=== PATIENT | female | born 1975 | race Caucasian/White ===

== ENCOUNTER 2016-12-27 15:19 | Emergency (ER) | payer OTHER ==
[~2016-12-27] VITALS: Ht 172.7 cm; Wt 93.8 kg
[~2016-12-27 15:19] MED LIST: IBUP-1050 PO
[2016-12-27 15:27] VITALS: TEMP 36.8; Ht 172.7 cm; Wt 93.8 kg
[2016-12-27] MEDS ORDERED: SODIUM CHLORIDE 0.9% 1000ML 1,000 ML IV STA (15:50)
[2016-12-27] MEDS ORDERED: KETOROLAC TROMETHAMINE 30 MG/ML VIAL IV STA (15:50)
[2016-12-27] MEDS ORDERED: ONDANSETRON INJ 2 MG/ML 2 ML VIAL IV STA (15:50)
--- NOTE | 2016-12-27 15:57 | EMERGENCY ROOM VISIT NOTE ---
History Report prepared by Jak: Lori Timmons Under the Supervision of: Dr. Edgard Choi D.O. First contact with patient: 15:44 Chief Complaint: FLANK PAIN Stated Complaint: LEFT SIDE & LEFT FLANK PAIN History of Present Illness The patient is a 41 year old female who presents to the Emergency Room with complaints of worsening left sided flank pain since 1100 this morning. The pain started in her groin and has radiated to her left flank. She rates her discomfort as a 5/10. She tried drinking a lot of water, but states it provided no relief. She has a history of kidney stones and reports the last time she experienced a stone was in April 2016. She has undergone a stent before, but states it was approximately 17 years ago. She admits to nausea but has not vomited. She has undergone both an appendectomy and cholecystectomy. She denies any fevers, gross hematuria, dysuria or abnormal vaginal bleeding or discharge. Her LMP was 3 weeks ago and normal. She denies any pain or swelling in her legs. She has no known medication allergies. She admits to a history of muscular back spasms and notes she takes Flexeril as needed. Source of History: patient Onset: 1100 today Position: back (left sided flank) Symptom Intensity: 5/10 Timing: worsening Modifying Factors (Relieving): drinking (drinking water) Associated Symptoms: + nausea, No fevers, No urinary symptoms, No vomiting Review of Systems See HPI for pertinent positives & negatives. A total of 10 systems reviewed and were otherwise negative. Past Medical & Surgical Surgical Problems: (1) History of cholecystectomy (2) Hx of appendectomy Family History Cancer Diabetes mellitus FH: heart disease FH: kidney disease FHx: gallbladder disease FHx: lung disease Hypertension Kidney stone Social History Smoking Status: Never Smoker Smokeless Tobacco Use: No Alcohol Use: none Drug Use: none Marital Status: Housing Status: lives with family Occupation Status: employed Current/Historical Medications Scheduled Polyethylene Glycol 3350 (Miralax), 17 GM PO DAILY Tamsulosin Hcl (Flomax), 0.4 MG PO DAILY Scheduled PRN Cyclobenzaprine Hcl (Flexeril), 10 MG PO DAILY PRN for Muscle Spasms Oxycodone Immediate Rel Tab (Roxicodone Ir), 1-2 TAB PO Q4H PRN for Severe Pain Allergies Coded Allergies: No Known Allergies (Verified , 12/27/16) Physical Exam Vital Signs Date Time Temp Pulse Resp B/P Pulse Ox O2 Delivery O2 Flow Rate FiO2 12/27/16 18:08 90 16 139/99 100 12/27/16 17:46 100 153/102 100 Room Air 12/27/16 15:27 36.8 97 18 192/110 100 Room Air Physical Exam GENERAL: Patient is awake, alert, very anxious appearing and uncomfortable appearing. EYES: The conjunctivae are clear. The pupils are round and reactive. EARS, NOSE, MOUTH AND THROAT: The nose is without any evidence of any deformity. Mucous membranes are moist tongue is midline NECK: The neck is nontender and supple. RESPIRATORY: Normal respiratory effort is noted there is no evidence of wheezing rhonchi or rales CARDIOVASCULAR: Regular rate and rhythm noted there no murmurs rubs or gallops normal S1 normal S2 GASTROINTESTINAL: The abdomen is soft. Bowel sounds are present in all quadrants. Abdomen is nontender BACK: There was CVA tenderness to percussion, no midline tenderness noted, ROM appeared intact. MUSCULOSKELETAL/EXTREMITIES: There is no evidence of gross deformity full range of motion is noted in the hips and shoulders SKIN: There is no obvious evidence of any rash. There are no petechiae, pallor or cyanosis noted. NEUROLOGIC: Patient is awake alert and oriented x3 Medical Decision & Procedures ER Provider Diagnostic Interpretation: This X-Ray was reviewed and interpreted by myself and the radiologist. KUB IMPRESSION: 1. There is no radiographic evidence of nephrolithiasis. 2. Moderate to severe constipation. Electronically signed by: Maik Jackson M.D. 12/27/2016 5:11 PM This Ultrasound was reviewed and interpreted by the radiologist and reviewed by myself. ULTRASOUND KIDNEYS AND BLADDER IMPRESSION: 1. The kidneys demonstrate mild cortical atrophy and are without hydronephrosis. 2. A large extrarenal pelvis on the right is similar to previous. 3. The bladder was normal as imaged. The left ureteral jet was identified. Electronically signed by: Maik Jackson M.D. 12/27/2016 4:55 PM Laboratory Results 12/27/16 16:00 Red Blood Count 5.01, Mean Corpuscular Volume 88.4, Mean Corpuscular Hemoglobin 30.1, Mean Corpuscular Hemoglobin Concent 34.1, Mean Platelet Volume 9.6, Neutrophils (%) (Auto) 46.6, Lymphocytes (%) (Auto) 40.7, Monocytes (%) (Auto) 8.0, Eosinophils (%) (Auto) 4.0, Basophils (%) (Auto) 0.5, Neutrophils # (Auto) 3.86, Lymphocytes # (Auto) 3.37, Monocytes # (Auto) 0.66, Eosinophils # (Auto) 0.33, Basophils # (Auto) 0.04 12/27/16 16:00 Test 12/27/16 15:47 12/27/16 16:00 Urine Color YELLOW Urine Appearance CLEAR (CLEAR) Urine pH 6.0 (4.5-7.5) Urine Specific Camp 1.003 (1.000-1.030) Urine Protein NEG (NEG) Urine Glucose (UA) NEG (NEG) Urine Ketones NEG (NEG) Urine Occult Blood 2+ (NEG) Urine Nitrite NEG (NEG) Urine Bilirubin NEG (NEG) Urine Urobilinogen NEG (NEG) Urine Leukocyte Esterase SMALL (NEG) Urine WBC (Auto) 1-5 /hpf (0-5) Urine RBC (Auto) 0-4 /hpf (0-4) Urine Hyaline Casts (Auto) 0 /lpf (0-5) Urine Epithelial Cells (Auto) 20-30 /lpf (0-5) Urine Bacteria (Auto) NEG (NEG) White Blood Count 8.28 K/uL (4.8-10.8) Red Blood Count 5.01 M/uL (4.2-5.4) Hemoglobin 15.1 g/dL (12.0-16.0) Hematocrit 44.3 % (37-47) Mean Corpuscular Volume 88.4 fL (80-100) Mean Corpuscular Hemoglobin 30.1 pg (25-34) Mean Corpuscular Hemoglobin Concent 34.1 g/dl (32-36) Platelet Count 312 K/uL (130-400) Mean Platelet Volume 9.6 fL (7.4-10.4) Neutrophils (%) (Auto) 46.6 % Lymphocytes (%) (Auto) 40.7 % Monocytes (%) (Auto) 8.0 % Eosinophils (%) (Auto) 4.0 % Basophils (%) (Auto) 0.5 % Neutrophils # (Auto) 3.86 K/uL (1.4-6.5) Lymphocytes # (Auto) 3.37 K/uL (1.2-3.4) Monocytes # (Auto) 0.66 K/uL (0.11-0.59) Eosinophils # (Auto) 0.33 K/uL (0-0.5) Basophils # (Auto) 0.04 K/uL (0-0.2) RDW Standard Deviation 40.8 fL (36.4-46.3) RDW Coefficient of Variation 12.7 % (11.5-14.5) Immature Granulocyte % (Auto) 0.2 % Immature Granulocyte # (Auto) 0.02 K/uL (0.00-0.02) Anion Gap 7.0 mmol/L (3-11) Est Creatinine Clear Calc Drug Dose 100.7 ml/min Estimated GFR () 94.6 Estimated GFR (Non- 81.6 BUN/Creatinine Ratio 9.7 (10-20) Calcium Level 10.4 mg/dl (8.5-10.1) Total Bilirubin 0.5 mg/dl (0.2-1) Direct Bilirubin 0.1 mg/dl (0-0.2) Aspartate Amino Transf (AST/SGOT) 10 U/L (15-37) Alanine Aminotransferase (ALT/SGPT) 23 U/L (12-78) Alkaline Phosphatase 69 U/L (45-117) Total Creatine Kinase 45 U/L (26-192) Total Protein 8.2 gm/dl (6.4-8.2) Albumin 4.4 gm/dl (3.4-5.0) Lipase 196 U/L (73-393) Human Chorionic Gonadotropin, Qual NEG (NEG) Laboratory results per my review. Medications Administered Medications (Trade) Dose Ordered Sig/Nichol Route Start Time Stop Time Status Last Admin Dose Admin Ketorolac Tromethamine 30 mg 30 mg NOW STAT IV 12/27/16 15:50 12/27/16 15:51 DC 12/27/16 16:03 30 MG Sodium Chloride (Nss 1000ml) 1,000 ml @ 999 mls/hr Q1H1M STAT IV 12/27/16 15:50 12/27/16 16:50 DC 12/27/16 15:50 999 MLS/HR Ondansetron HCl (Zofran Inj) 4 mg NOW STAT IV 12/27/16 15:50 12/27/16 15:51 DC 12/27/16 16:02 4 MG Morphine Sulfate (MoRPHine SULFATE INJ) 4 mg Q15M PRN IV 12/27/16 16:00 12/27/16 18:23 DC 12/27/16 16:02 4 MG ED Course 1548: The patient was evaluated in room B7. A complete history and physical examination were performed. 1550: Zofran 4 mg IV, NSS 1000 ml @ 999 mls/hr IV, Toradol 30 mg IV. 1600: Morphine Sulfate 4 mg IV. 1745: I reevaluated the patient. She is feeling better. I discussed her results and discharge instructions and she verbalized complete understanding and agreement. Medical Decision Prior records/ancillary studies reviewed. Triage Nursing notes reviewed. The patient's history was concerning for kidney pain. Differential diagnosis: Etiologies such as renal colic, appendicitis, diverticulitis, mesenteric ischemia, aortic pathology, infections, inflammatory bowel disease, PUD, biliary pathology, UTI, as well as others were entertained. The patient is a 41-year-old female who presented to the emergency department for an evaluation of flank pain. The patient has a history of kidney stones and felt that this was consistent with her previous history of kidney stones. She was treated with IV fluids IV pain medicine IV antiemetics. On subsequent reevaluation she was feeling much better. She was encouraged to drink plenty clear liquids. I discussed the patient's laboratory radiographic studies with her. She was encouraged to continue all other medications as prescribed. She was also encouraged to follow-up with your family as well as her primary urologist. Otherwise she was encouraged to return to the emergency department immediately if symptoms change worsen or the need arises. Impression Primary Impression: Left flank pain Additional Impressions: Kidney stone Constipation Scribe Attestation The scribe's documentation has been prepared under my direction and personally reviewed by me in its entirety. I confirm that the note above accurately reflects all work, treatment, procedures, and medical decision making performed by me. Departure Information Dispostion Home / Self-Care Prescriptions Polyethylene Glycol 3350 (MIRALAX) 1 Pow Pow 17 GM PO DAILY, #527 GM Prov: Edgard Choi, DO 12/27/16 Oxycodone Immediate Rel Tab (ROXICODONE IR) 5 Mg Tab 1-2 TAB PO Q4H Y for Severe Pain, #20 TAB Prov: Edgard Choi, 12/27/16 Tamsulosin Hcl (FLOMAX) 0.4 Mg Cap 0.4 MG PO DAILY, #10 CAP Prov: Edgard Choi DO 12/27/16 Referrals Risa Lofton DO (PCP) Patient Instructions Kidney Stones, [facility] Additional Instructions Drink plenty of clear liquids. Continue all medications as prescribed. Continue using Motrin and Tylenol as directed for mild pain. Return to the emergency department if symptoms worsen or if need arises. Problem Qualifiers Additional Impressions: Constipation Constipation type: unspecified constipation type Qualified Codes: K59.00 - Constipation, unspecified
[2016-12-27] MEDS ORDERED: CYCL10TA6 PO (16:00)
[2016-12-27] MEDS ORDERED: MoRPHine SULFATE 4 MG/ML 1 ML CARP\\VIAL IV PRN (16:00)
[2016-12-27 16:05] LABS: URINE APPEARANCE CLEAR (CLEAR); URINE BILIRUBIN NEG (NEG); URINE COLOR YELLOW; URINE EPITHELIAL CELL AUTO 20-30 /lpf (0-5); URINE NITRITE NEG (NEG); URINE SPECIFIC GRAVITY 1.003 (1.000-1.030); UROBILINOGEN NEG (NEG)
[2016-12-27 16:12] LABS: BASO % 0.5 %; BASO ABS # 0.04 K/uL (0-0.2); COMPLETE YES; HEMATOCRIT 44.3 % (37-47); IG% 0.2 %; LYMPH % 40.7 %; LYMPH ABS # 3.37 K/uL (1.2-3.4); MEAN CELL VOLUME 88.4 fL (80-100); MEAN CORPUSCULAR HEMOGLOBIN 30.1 pg (25-34); MEAN CORPUSCULAR HGB CONC 34.1 g/dl (32-36); MEAN PLATELET VOLUME 9.6 fL (7.4-10.4); NEUT % 46.6 %; PLATELET COUNT 312 K/uL (130-400); RED BLOOD COUNT 5.01 M/uL (4.2-5.4); WHITE BLOOD COUNT 8.28 K/uL (4.8-10.8)
[2016-12-27 16:24] LABS: MANUAL MICROSCOPIC REQUIRED? NO; REVIEW REQ? NO
[2016-12-27 16:30] LABS: BUN/CREATININE RATIO 9.7 (10-20); CALCIUM 10.4 mg/dl (8.5-10.1); CREATININE 0.88 mg/dl (0.60-1.20); POTASSIUM 3.5 mmol/L (3.5-5.1)
[2016-12-27 16:32] LABS: PREG INTERNAL NEGATIVE QC NEG CLEAR BACKGROUND; PREG INTERNAL POSITIVE QC POS CONTROL LINE
--- NOTE | 2016-12-27 16:57 | DIAGNOSTIC IMAGING REPORT ---
ULTRASOUND KIDNEYS AND BLADDER CLINICAL HISTORY: Left flank pain. COMPARISON STUDY: Renal ultrasound dated 04/05/2016. TECHNIQUE: Real-time, grayscale, and color flow sonography of the kidneys and bladder is performed. Images are reviewed in the transverse and longitudinal planes. FINDINGS: Kidneys: The kidneys demonstrate cortical atrophy. The right kidney measures 12.1 cm in length and the left kidney measures 11.9 cm in length. A large extrarenal pelvis is again seen on the right with mild fullness of the collecting system. There is no indra hydronephrosis. No shadowing renal calculi are identified. There is no sonographic evidence of contour deforming renal mass lesion. No perinephric fluid is identified. Bladder: The bladder is normal as imaged. The left ureteral jet was seen. IMPRESSION: 1. The kidneys demonstrate mild cortical atrophy and are without hydronephrosis. 2. A large extrarenal pelvis on the right is similar to previous. 3. The bladder was normal as imaged. The left ureteral jet was identified. Electronically signed by: Maik Jackson M.D. 12/27/2016 4:55 PM Dictated Date/Time: 12/27/2016 4:49 PM
--- NOTE | 2016-12-27 17:12 | DIAGNOSTIC IMAGING REPORT ---
KUB CLINICAL HISTORY: Generalized abdominal pain. FINDINGS: 2 AP supine abdominal radiographs are compared to study dated 04/05/2016. There is a nonobstructed abdominal bowel gas pattern noting moderate to severe constipation. No evidence of intraperitoneal free air is seen on this supine examination. There is no radiographic evidence of nephrolithiasis. Numerous phleboliths in the pelvis are similar to previous. Cholecystectomy clips are noted. The lung bases appear clear. The bony structures appear intact. IMPRESSION: 1. There is no radiographic evidence of nephrolithiasis. 2. Moderate to severe constipation. Electronically signed by: Maik Jackson M.D. 12/27/2016 5:11 PM Dictated Date/Time: 12/27/2016 5:10 PM
[2016-12-27] MEDS ORDERED: OXYC1TAB3 PO (17:49)
[2016-12-27] MEDS ORDERED: TAMS0.4C38 PO (17:49)
[2016-12-27] MEDS ORDERED: POLY335019 PO (17:52)
[2016-12-27 18:08] VITALS: BP 139/99; PULSE 90; O2SAT 100
== END 2016-12-27 18:09 | disposition home or self-care (01) ==
LOC: C.EDB 15:21
DX: N20.0 Calculus of kidney (principal); K59.00 Constipation, unspecified; Z87.442 Personal history of urinary calculi; Z90.49 Acquired absence of other specified parts of digestive tract; Z98.890 Other specified postprocedural states; Z80.9 Family history of malignant neoplasm, unspecified; Z83.3 Family history of diabetes mellitus; Z82.49 Family history of ischemic heart disease and other diseases of the circulatory system; Z84.1 Family history of disorders of kidney and ureter; Z83.79 Family history of other diseases of the digestive system